=== PATIENT | male | born 1970 | race Caucasian/White ===

== ENCOUNTER 2024-01-14 13:47 | Outpatient (CLI) | payer OTHER | END 2024-01-14 23:59 | disposition home or self-care (01) | LOC: MRI 13:47 | PROVIDERS: ATTEND Physician Assistant | DX: M19.012 Primary osteoarthritis, left shoulder (principal); M25.512 Pain in left shoulder; M75.102 Unspecified rotator cuff tear or rupture of left shoulder, not specified as traumatic; M75.52 Bursitis of left shoulder | CPT/HCPCS: 73221 ==